=== PATIENT | male | born 1940 | race Caucasian/White ===

== ENCOUNTER → 2017-01-03 | Outpatient (CLI) | payer MEDICARE, OTHER ==
[~2017-01-03] MED LIST: OMNIPAQUE 350 MG/ML, 150 ML BOTTLE ONE
== END | disposition home or self-care (01) ==
LOC: CFH 12:17
PROVIDERS: ATTEND Family Medicine
DX: C73 Malignant neoplasm of thyroid gland (principal); I65.29 Occlusion and stenosis of unspecified carotid artery; J84.9 Interstitial pulmonary disease, unspecified; J98.4 Other disorders of lung; R05 Cough; R59.1 Generalized enlarged lymph nodes; R91.8 Other nonspecific abnormal finding of lung field
CPT/HCPCS: 70491; 71260; Q9967

== ENCOUNTER → 2017-04-20 | Outpatient (CLI) | payer MEDICARE, OTHER | END | disposition home or self-care (01) | LOC: PETCFH 07:23 | PROVIDERS: ATTEND Surgery | DX: R59.0 Localized enlarged lymph nodes (principal); M79.89 Other specified soft tissue disorders; J18.9 Pneumonia, unspecified organism; J98.11 Atelectasis; C73 Malignant neoplasm of thyroid gland | CPT/HCPCS: 78815; A9552 ==

== ENCOUNTER → 2017-05-20 | Outpatient (CLI) | payer MEDICARE, OTHER ==
[~2017-05-20] MED LIST changes: +OMNIPAQUE 350 MG/ML, 100ML BOTTLE ONE; -OMNIPAQUE 350 MG/ML, 150 ML BOTTLE ONE
== END | disposition home or self-care (01) ==
LOC: CFH 10:45
PROVIDERS: ATTEND Surgery
DX: R22.1 Localized swelling, mass and lump, neck (principal); E89.0 Postprocedural hypothyroidism; C79.9 Secondary malignant neoplasm of unspecified site; K11.0 Atrophy of salivary gland; I65.23 Occlusion and stenosis of bilateral carotid arteries; J84.10 Pulmonary fibrosis, unspecified
CPT/HCPCS: 70491; 82565; Q9967